=== PATIENT | male | born 1940 | race Caucasian/White ===

== ENCOUNTER 2016-10-12 14:18 | Inpatient (IN) | payer MEDICARE, OTHER ==
[~2016-10-12] VITALS: Ht 175.3 cm; Wt 98.2 kg
--- NOTE | ~2016-10-12 | ECH ---
Transthoracic Echocardiography Report (TTE) Demographics Patient Name LIZZY CARBAJAL Date of Study 10/14/2016 Patient Number [id number] Visit Number [id number] Date of 1940 Room Number 414 Accession Number [id number] Gender Male Age 76 year(s) Referring Nat Kyle MD Bushel Girl Deysi Castillo Physician RDCS Physician Interpreting Teagan Wolfe MD Tracer Bullet Section Supervisor Physician Supervising Ordering Physician Nat Kyle MD, MD/MLP Nurse Stress Financial Analyst Intern Conclusions Summary Technically adequate exam. The estimated left ventricular ejection fraction is 50%. Ejection fraction difficult to assess due to arrhythmia. Mild concentric left ventricular hypertrophy. Mildly dilated right ventricle with normal function. The left atrium is severely dilated by LA volume index measurement. The right atrium is mildly dilated. There is mild aortic regurgitation by color Doppler. Mild tricuspid regurgitation by color Doppler. There is moderate pulmonary hypertension. The pulmonary pressure (RVSP) is 50 mmHg. Procedure Type of Study TTE procedure:Echo Complete SF. Procedure Date Date: 10/14/2016 Start: 09:16 AM Technical Quality: Adequate visualization Indications:Elevated Troponin, Atrial fibrillation, edema, Hypertension and Diabetes. Height: 69 inches Weight: 216 pounds BSA: 2.13 m Rhythm: Irregular HR: 77 bpm BP: 114/66 mmHg M-Mode/2D Measurements LV Diastolic Dimension: 4.83 cm LV Systolic Dimension: 4.35 cm LV Septum Diastolic: 1.08 cm LV PW Diastolic: 1.09 cm AO Root Dimension: 3.18 cm Cardiac Output: 5.93 l/min LA Dimension: 4.62 cm Cardiac Index: 2.78 l/min*m RV Diastolic Dimension: 4.52 cm LA volume index: 56 ml/m LVOT: 2.21 cm LVOT VTI: 20.1 cm RV Base: 4.7 cm LV Stroke volume: 77.06 ml RV Mid: 3.7 cm LV Stroke volume index: 36.18 ml/m TAPSE: 1.8 cm TDI-S': 10 cm/s Doppler Measurements AV Peak Velocity: 1.5 m/s MV Peak E-Wave: 1.31 m/s AV Peak Gradient: 9 mmHg AV Mean Gradient: 5.09 mmHg MV P1/2t: 50.9 msec LVOT Peak Velocity: 1.07 m/s AV Area (Continuity):2.95 cm AV P1/2t: 458 msec MV Area (PHT): 4.32 cm TR Velocity:3.23 m/s PV Peak Velocity: 0.74 m/s TR Gradient:41.65 mmHg PV Peak Gradient: 2.19 mmHg Estimated RAP:8 mmHg Estimated PASP: 49.65 mmHg Estimated RVSP: 50 mmHg E' Lateral Velocity: 0.13 m/s RA Area: 29.51 cm Findings Left Ventricle The left ventricle is normal in size . Mild concentric left ventricular hypertrophy. Diastolic function indeterminate due to patient's arrhythmia. Right Ventricle Mildly dilated right ventricle with normal function. Left Atrium The left atrium is severely dilated by LA volume index measurement. Right Atrium The right atrium is mildly dilated. Mitral Valve Normal mitral valve structure and function. Mild mitral regurgitation by color Doppler. Aortic Valve The aortic valve is mildly sclerotic. There is mild aortic regurgitation by color Doppler. Tricuspid Valve Normal tricuspid valve structure and function. Mild tricuspid regurgitation by color Doppler. There is moderate pulmonary hypertension. The pulmonary pressure (RVSP) is 50 mmHg. Pulmonic Valve Normal pulmonic valve structure and function. Trivial pulmonic valve regurgitation by color Doppler. Pericardial Effusion No evidence of pericardial effusion. Miscellaneous Visualized portions of the aortic root and ascending aorta appear normal in size. Pleural Effusion No evidence of pleural effusion. Signature
[~2016-10-12 14:18] MED LIST: COUMADIN2.5 MG PO; COUMADIN5 MG PO; EXELON1 EACH TD; FEOSOL-DPS325 MG PO; FLOMAX DPS0.4 MG PO; KLOR-CON M2020 ME1 PO; LASIX DPS80 MG PO; MAALOX DPS30 ML PO; NEURONTIN DPS300 MG PO; NITROSTAT0.4 MG SL; SINEMET 25/1001 TAB PO; SURFAK DPS240 MG PO; SYNTHROID DPS0.05 MG PO; TOPROL XL DPS50 MG PO; TYLENOL DPS325 MG PO; ZESTRIL DPS5 MG PO
--- NOTE | 2016-10-16 08:25 | ER ---
ADMIT: 10/12/2016 RM/LOC: 312 [facility] MR#: [id number] [address] [address] LIZZY CARBAJAL [address] [place] [address] Emergency Room Report SEX: M AGE: 76 : 1940 DATE: 10/12/2016 ADDENDUM: 76-year-old white male coming in not feeling well, running a fever 101.7. Maybe a little cough. He has multiple comorbidities. Chest x-ray is left lower lobe infiltrate, we will call that pneumonia. His MAP was below 65. His white count 13.2, troponin took a bump at 0.337, lactate 2.3. EKG nothing acute. It was atrial fibrillation. We gave him 30 mL/kg as well as Zosyn to start. I spoke with Dr. Johns, he will need to admit him. CONDITION ON DISCHARGE: Critical, but stable. Saad Thompson MD/ letty JOB #: [id number] CC: Elías Johns DO, Attending Physician Elías Johns DO, Family Physician
[2016-10-21] MEDS ORDERED: NEURONTIN DPS300 MG PO (17:52)
[2016-10-21] MEDS ORDERED: FLOMAX DPS0.4 MG PO (17:52)
[2016-10-21] MEDS ORDERED: LEXAPRO DPS10 MG PO (17:52)
[2016-10-21] MEDS ORDERED: KLOR-CON M2020 ME1 PO (17:52)
[2016-10-21] MEDS ORDERED: FEOSOL-DPS325 MG PO (17:52)
[2016-10-21] MEDS ORDERED: ARICEPT DPS5 MG PO (17:53)
[2016-10-21] MEDS ORDERED: TOPROL XL DPS25 MG PO (17:53)
[2016-10-21] MEDS ORDERED: LASIX DPS80 MG PO (17:53)
[2016-10-21] MEDS ORDERED: SYNTHROID DPS0.05 MG PO (17:54)
[2016-10-21] MEDS ORDERED: FLAGYL-DPS500 MG PO (17:54)
[2016-10-21] MEDS ORDERED: CARBIDOPA-LEVO1 EAC1 PO (17:54)
[2016-10-21] MEDS ORDERED: DUONEB DPS3 ML IH (17:55)
[2016-10-21] MEDS ORDERED: MAALOX DPS30 ML PO (17:55)
[2016-10-21] MEDS ORDERED: QUESTRAN DPS4 GM PO (17:55)
[2016-10-21] MEDS ORDERED: TYLENOL DPS325 MG PO (17:55)
--- NOTE | 2016-11-15 08:35 | HP ---
ADMIT: 10/12/2016 RM/LOC: 312 [facility] MR#: [id number] [address] [address] ILZZY CARBAJAL [address] [place] [address] History and Physical SEX: M AGE: 76 : 1940 DATE OF SERVICE: 10/12/2016 REASON FOR HOSPITALIZATION: Pneumonia and sepsis. HISTORY OF PRESENT ILLNESS: This is a 76-year-old male patient, who I am seeing in the emergency room for pneumonia and sepsis. He is being admitted to the intensive care unit. He presented after awakening this morning with increased general fatigue, urinary incontinence, shortness of breath, and fever. He does have a medical history of hypertension, COPD, diabetes, CVA, neuropathy, dementia, and obstructive sleep apnea. He has had a prior tibial plateau/tibial tuberosity fracture, which required extended stay at a local assisted for rehab, he is now at home. PAST MEDICAL HISTORY: He has a history of BPH, hypothyroidism, long-term anticoagulation therapy, atrial fibrillation, Raynaud syndrome, and chronic vertigo. PAST SURGICAL HISTORY: He has had adenoidectomy, prior ankle surgery for open reduction and internal fixation, cholecystectomy, and tonsillectomy. SOCIAL HISTORY: Again, he is now living at home. He is a nonsmoker, does not use alcohol. FAMILY HISTORY: Noncontributory. REVIEW OF SYSTEMS: As outlined above. He has had some diarrhea, but he has chronic loose stools and diarrhea. He states that this morning this was much worse than usual. No blood in the stool or his current sputum production. No chest pain. He does, however, on exam have slight bump in his troponin. MEDICATIONS: 1. Donepezil. 2. Carbidopa and levodopa. 3. Escitalopram. 4. Ferrous sulfate. 5. Furosemide. 6. Gabapentin. 7. Levothyroxine. 8. Lisinopril. 9. Metoprolol. 10.Potassium. 11.Tamsulosin. 12.Warfarin. For specifics of dosing, refer to his admission orders. PHYSICAL EXAMINATION: VITAL SIGNS: He is pleasant. His blood pressure is now up in the 120 systolic range, and his map is stable after receiving sepsis IV fluid protocol. ADMIT: 10/12/2016 RM/LOC: 312 [facility] MR#: [id number] [address] [address] LIZZY CARBAJAL [address] [place] [address] History and Physical SEX: M AGE: 76 : 1940 GENERAL: Grossly, he is pleasant, alert. He does have some underlying dementia, but he has fairly intact mental function at this time with family at bedside. HEART: Regular. LUNGS: Distant, but clear. ABDOMEN: Round, soft, nontender. He has 2+ edema in the legs. LABORATORY DATA: His lactic acid is 2.3. His creatinine is 1.4. His CK is 588 with an MB of 15.8 and a troponin of 0.337. His INR is 1.6. His white count is 13.2. His EKG shows atrial fibrillation. His chest x-ray, left lower lobe infiltrate. IMPRESSION: Pneumonia and sepsis with underlying chronic health concerns and currently increased troponin and CK-MB, but no active chest pain. PLAN: We will admit him, give him IV fluids, and sepsis protocol management including IV antibiotic therapy and nebulized treatment. We will monitor his blood sugar, repeat cardiac enzymes, and observe in the intensive care unit. Elías Johns DO/ letty JOB #: [id number] CC: Elías Johns, Attending Physician Elías Johns, Family Physician
--- NOTE | 2016-12-08 08:09 | DS ---
ADMIT: 10/12/2016 RM/LOC: 414 [facility] MR#: [id number] [address] [address] LIZZY CARBAJAL [address] [place] [address] General Discharge Summary SEX: M AGE: 76 : 1940 ADMISSION DATE: 10/12/2016 DISCHARGE DATE: 10/20/2016 REASON FOR HOSPITALIZATION: Pneumonia/sepsis. HISTORY OF PRESENT ILLNESS: A 76-year-old male patient, presented to the emergency room with pneumonia and sepsis, was admitted to the intensive care unit. He had awakened in the morning of presentation with general fatigue, urinary incontinence, shortness of breath, and fever. He does have a history of hypertension, COPD, diabetes, CVA, neuropathy, dementia, and obstructive sleep apnea. HOSPITAL COURSE: He was admitted initially to the intensive care unit where he was stabilized after cultures and institution of broad-spectrum antibiotic management, nebulized treatments, and sepsis protocol fluid resuscitation. By his 2nd hospital day, he was shown to have improved left lower lobe pneumonia and his blood pressures had stabilized, sepsis had improved, but he was having diarrhea. We covered him for C. difficile with Flagyl and perform C. difficile studies, which was ultimately negative. I then put him on Questran and this did improve his diarrhea. He did have a mild bump in his cardiac enzymes felt secondary to demand ischemia. Echocardiogram was performed and revealed an ejection fraction of 50%, with dilated left atrium, moderate pulmonary hypertension. I did restart him back on his chronic Coumadin therapy. On 10/19/2016, we noted his chest x-ray to be worsening and I therefore had him undergo a CAT scan of his chest, which revealed mild interstitial thickening, small pleural effusion, and reactive adenopathy. By this point, he was doing much better, his respiratory status had improved, his heart rate remained irregular consistent with atrial fibrillation, but rate was controlled and his INR was 4.3. We did feel it was appropriate for him to be dismissed home in generally improved condition. He was to return to my office to have pro-time INR and basic metabolic profile performed on Tuesday, following dismissal. He was to stay on Flagyl 500 mg p.o. t.i.d. to finish out his course of therapy. He was also to continue Questran and receive Lasix 80 mg daily. We held his Coumadin and plan for followup outpatient INR. FINAL DIAGNOSES: 1. Pneumonia/sepsis. 2. Atrial fibrillation. 3. Colitis. 4. Congestive heart failure. 5. Demand ischemia. Elías Johns DO/ modl JOB #: [id number] CC: Elías Johns DO, Attending Physician ADMIT: 10/12/2016 RM/LOC: 414 [facility] MR#: [id number] [address] [place] [id number] LIZZY CARBAJAL [address] [place] [address] General Discharge Summary SEX: M AGE: 76 : 1940 Elías Johns DO, Family Physician
[2016-12-16] MEDS ORDERED: ADVAIR DIS1 PUFF/DOS IH (15:07)
[2016-12-16] MEDS ORDERED: COUMADIN2.5 MG PO (15:08)
[2016-12-16] MEDS ORDERED: COUMADIN5 MG PO (15:08)
[2016-12-16] MEDS ORDERED: PERCOCET 5-3251 EACH PO (15:10)
== END 2016-10-20 12:00 | disposition home or self-care (01) | DRG 871 ==
LOC: ER 14:18 → 3ICU 15:54 → 4PCU 10-13 17:10
PROVIDERS: ADMIT Internal Medicine
DX: A41.9 Sepsis, unspecified organism (principal); J18.9 Pneumonia, unspecified organism; I11.0 Hypertensive heart disease with heart failure; E11.40 Type 2 diabetes mellitus with diabetic neuropathy, unspecified; I24.8 Other forms of acute ischemic heart disease; I50.9 Heart failure, unspecified; F03.90 Unspecified dementia, unspecified severity, without behavioral disturbance, psychotic disturbance, mood disturbance, and anxiety; J44.0 Chronic obstructive pulmonary disease with (acute) lower respiratory infection; I48.91 Unspecified atrial fibrillation; K52.9 Noninfective gastroenteritis and colitis, unspecified; G47.33 Obstructive sleep apnea (adult) (pediatric); N40.0 Benign prostatic hyperplasia without lower urinary tract symptoms; E03.9 Hypothyroidism, unspecified; I73.00 Raynaud's syndrome without gangrene; R42 Dizziness and giddiness; R79.89 Other specified abnormal findings of blood chemistry; Z86.73 Personal history of transient ischemic attack (TIA), and cerebral infarction without residual deficits; Z79.01 Long term (current) use of anticoagulants

== ENCOUNTER 2016-12-10 10:26 | Inpatient (IN) | payer MEDICARE, OTHER ==
[~2016-12-10] VITALS: Ht 175.3 cm; Wt 93.3 kg
--- NOTE | ~2016-12-10 | DS ---
ADMIT: 12/10/2016 RM/LOC: 528 [facility] MR#: [id number] [facility]#: [id number] [address] [address] LIZZY CARBAJAL [address] [place] [address] General Discharge Summary SEX: M AGE: 76 : 1940 ADMISSION DATE: 12/10/2016 DISCHARGE DATE: 12/15/2016 REASON FOR HOSPITALIZATION: Compression fracture and edema. HISTORY OF PRESENT ILLNESS: A 76-year-old male patient with Parkinson's disease and mild dementia, who fell in late October, and then presented to my office on the day of admission with progressively worsened pain, immobility, and increasing edema from not being able to lie flat or lie down in his bed, superimposed upon chronic venous insufficiency and edema. MRI revealed an 80% compression fracture at T3 with retropulsion. HOSPITAL COURSE: He was admitted to the hospital, placed at bed rest. His legs were elevated. He was given IV Lasix, and his Coumadin was held. He was given IV morphine for pain management, and Neurosurgery was consulted. Neurosurgery recommended vertebroplasty, and Interventional Radiology was consulted to make preparations. His Coumadin was held. His INRs were monitored. He was given vitamin K, and on 12/13, plans were put in place for kyphoplasty. On 12/14, the patient went for a kyphoplasty of his T3 compression fracture with successful outcome. On 12/15, he was doing better. His edema had improved, and he was appropriate for dismissal home to the care of his family with plans to follow up with me in 10 to 14 days, and at that time, undergo basic metabolic profile, and INR. Arrange for outpatient physical therapy and Lasix 80 mg p.o. daily. DISCHARGE MEDICATIONS: For review of the remainder of his dismissal med list, please refer to his dismissal orders. FINAL DIAGNOSES: 1. T3 compression fracture with vertebroplasty/kyphoplasty performed. 2. Edema. 3. Mild dementia. 4. Diabetes. 5. Parkinson's disease. Elías Johns DO/ letty JOB #: [id number] CC: Elías Johns DO, Attending Physician Elías Johns DO, Family Physician
[~2016-12-10 10:26] MED LIST changes: +ARICEPT DPS5 MG PO; +CARBIDOPA-LEVO1 EAC1 PO; +DUONEB DPS3 ML IH; +FLAGYL-DPS500 MG PO; +LEXAPRO DPS10 MG PO; +QUESTRAN DPS4 GM PO; +TOPROL XL DPS25 MG PO
[2016-12-16] MEDS ORDERED: ADVAIR DIS1 PUFF/DOS IH (15:07)
[2016-12-16] MEDS ORDERED: COUMADIN2.5 MG PO (15:08)
[2016-12-16] MEDS ORDERED: COUMADIN5 MG PO (15:08)
[2016-12-16] MEDS ORDERED: PERCOCET 5-3251 EACH PO (15:10)
--- NOTE | 2016-12-31 14:41 | CO ---
ADMIT: 12/10/2016 RM/LOC: 528 [facility] MR#: [id number] [address] [address] LIZZY CARBAJAL [address] [place] [address] Consultation SEX: M AGE: 76 : 1940 DATE OF CONSULTATION: 12/10/2016 ATTENDING PHYSICIAN: Elías Johns CONSULTING PHYSICIAN: Mary Longoria MD I saw this 76-year-old man in the hospital today. He apparently fell on 17 of November and following the fall, he started complaining of pain in the upper thoracic region. Consequently, he was eventually taken to his doctor who examined him and he did a CT scan of the thoracic spine. The CT scan of the thoracic spine then showed a compression fracture of T3. He, however, was treated as an outpatient since he responded very well to the analgesic that he was prescribed. Unfortunately, he decided to take a long road trip in a truck and consequent to that trip, he started having increasing pain in the upper thoracic region. The pain got unbearable and was not responding to the analgesics he was taking previously. Consequently, he was admitted to the hospital for pain control. PAST MEDICAL HISTORY: History of COPD, hypertension, diabetes, atrial fibrillation, Raynaud syndrome, hypothyroidism, and benign prostatic hypertrophy. PAST SURGICAL HISTORY: He has had open reduction and fixation of right ankle fracture, cholecystectomy and tonsillectomy and was recently discharged following a bout of pneumonia from the hospital. He has also had tibial tuberosity fracture on the right knee. SOCIAL HISTORY: Does not drink alcohol. He does not smoke. ALLERGIES: SEE THE HOSPITAL ADMISSION NOTE. FAMILY HISTORY: Noncontributory. REVIEW OF SYSTEMS: The only abnormality on reviewing him presently that he has upper back pain. He does not have any chest pain. No pain in the upper or lower extremities. No radiation of the pain. He has not noticed any weakness in his upper or lower extremities. No numbness or tingling in the upper or lower extremities. MEDICATIONS: See the list in the chart. PHYSICAL EXAMINATION: GENERAL: In the hospital, a 76-year-old male. He has just been given some analgesics and did not appear to be in any acute distress. He was sitting in the chair. He was awake. He was alert. VITAL SIGNS: Blood pressure was 111/70, pulse was 63, respirations were 20, and temperature is 98.8. HEENT: Normocephalic. NECK: There was no tenderness on palpating the cervical spinous processes. There was no restriction of movement of the cervical spine. ADMIT: 12/10/2016 RM/LOC: 528 [facility] MR#: [id number] [address] [address] LIZZY CARBAJAL [address] [place] [address] Consultation SEX: M AGE: 76 : 1940 CHEST: Clear. HEART: Irregular. NEUROLOGICAL: Cranial nerve examination was normal. Motor examination was normal. The sensory examination was normal. Reflexes were brisk in the upper extremities, both symmetrical and in lower extremities, they were normal. There was no Babinski. BACK: There was tenderness palpating the upper thoracic spine. There was no tenderness on palpating the paraspinal muscles. IMPRESSION: Compression fracture of T3 along with fracture of the spinous processes of T3-T4. He has ankylosing spondylitis. RECOMMENDATION: We should go ahead and do a vertebroplasty, see if that will give him some relief if it is possible. He is presently on Coumadin and the Coumadin is being held. His INR today was more than 3. In the meantime he seems to be reasonably comfortable on the IV morphine that he is presently on. Just discontinuing that until Tuesday do to the INR on Tuesday and if it is normal, see whether we could go ahead and do a vertebroplasty on him on Tuesday. Mary Longoria MD/ letty JOB #: [id number] CC: Elías Johns, Attending Physician Elías Johns, Family Physician
--- NOTE | 2017-01-13 07:59 | HP ---
ADMIT: 12/14/2016 RM/LOC: 528 [facility] MR#: [id number] [facility]#: [id number] [address] [address] LIZZY CARBAJAL [address] [place] [address] History and Physical SEX: M AGE: 76 : 1940 DATE OF SERVICE: REASON FOR HOSPITALIZATION: Fall and progressive back pain. HISTORY OF PRESENT ILLNESS: A 76-year-old male patient, who has a history of Parkinson's disease and dementia. In late October, he fell and has had progressive disabling back pain since the time of his fall. An MRI revealed an 80% compression fracture at T3 level with retropulsion. I am admitting him for further management and care of his pain and compression fracture. PAST MEDICAL HISTORY: He has a history of; 1. Atrial fibrillation. 2. Hypertension. 3. Coronary artery disease. 4. Stroke. 5. Diabetes mellitus. 6. BPH. 7. Parkinson's disease. 8. Dementia. SOCIAL HISTORY: He lives at home with his and daughter, who help him and assist with his cares. FAMILY HISTORY: Noncontributory. MEDICATIONS: 1. Sinemet 25/100, three times a day. 2. DuoNeb 4 times a day. 3. Donepezil 5 mg q.evening. 4. Lexapro daily. 5. Ferrous sulfate 325 mg daily. 6. Furosemide 80 mg daily. 7. Gabapentin 300 mg at bedtime. 8. Levothyroxine 50 mcg daily. 9. Metoprolol 25 mg b.i.d. 10.Potassium chloride 20 mEq t.i.d. 11.Cholestyramine 4 g b.i.d. 12.Tamsulosin 0.4 mg in the evening. 13.Coumadin 2.5 mg Tuesday, Tuesday, Tuesday, Tuesday, and Tuesday, and 5 mg Mondays and . he also takes Advair 100/50 b.i.d. and tramadol on a p.r.n. basis. REVIEW OF SYSTEMS: Pain and discomfort, increased swelling in his ankles to the point where he is starting to get some skin breakdown. He denies any current nausea, vomiting, chest pain, diarrhea, constipation, or bleeding. He had a prior history of recurrent diarrhea, however, this improved when starting cholestyramine. PHYSICAL EXAMINATION: VITAL SIGNS: Within normal range. ADMIT: 12/14/2016 RM/LOC: 528 [facility] MR#: [id number] [address] [address] LIZZY CARBAJAL [address] [place] [address] History and Physical SEX: M AGE: 76 : 1940 GENERAL: In obvious pain and discomfort. EAR, NOSE, AND THROAT: Unremarkable. HEART: Irregular. LUNGS: Clear and distant. ABDOMEN: Round, soft, nontender. EXTREMITIES: 3+ edema in the legs. IMPRESSION: 1. Compression fracture. 2. Edema/fluid overload. 3. Chronic anticoagulation therapy. PLAN: Admit. Pain management. IV Lasix. Hold Coumadin, and ask for Neurosurgery to review. Elías Johns DO/ letty JOB #: [id number] CC: Elías Johns DO, Attending Physician Elías Johns DO, Family Physician
== END 2016-12-15 13:07 | disposition home or self-care (01) | DRG 515 ==
LOC: 5MS 10:26
PROVIDERS: ADMIT Internal Medicine
DX: S22.039A Unspecified fracture of third thoracic vertebra, initial encounter for closed fracture (principal); I50.33 Acute on chronic diastolic (congestive) heart failure; I27.81 Cor pulmonale (chronic); F03.90 Unspecified dementia, unspecified severity, without behavioral disturbance, psychotic disturbance, mood disturbance, and anxiety; G20 Parkinson's disease; J44.9 Chronic obstructive pulmonary disease, unspecified; I11.0 Hypertensive heart disease with heart failure; I48.91 Unspecified atrial fibrillation; S22.049A Unspecified fracture of fourth thoracic vertebra, initial encounter for closed fracture; I87.2 Venous insufficiency (chronic) (peripheral); E11.9 Type 2 diabetes mellitus without complications; I73.00 Raynaud's syndrome without gangrene; E03.9 Hypothyroidism, unspecified; N40.0 Benign prostatic hyperplasia without lower urinary tract symptoms; M45.4 Ankylosing spondylitis of thoracic region; W19.XXXA Unspecified fall, initial encounter; Z79.01 Long term (current) use of anticoagulants; I25.10 Atherosclerotic heart disease of native coronary artery without angina pectoris; Z86.73 Personal history of transient ischemic attack (TIA), and cerebral infarction without residual deficits